=== PATIENT | male | born 1990 | race American Indian/Alaskan Native ===

== ENCOUNTER 2016-12-06 04:42 | Emergency (ER) | payer BC, OTHER ==
[2016-12-06 04:53] VITALS: BP 134/109
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
[2016-12-06 06:08] LABS: CHLORIDE,CL 104 mmol/L (101-111); SODIUM,NA 140 mmol/L (135-145)
== END 2016-12-06 06:40 ==
LOC: DL.ED 04:42
DX: F19.10 Other psychoactive substance abuse, uncomplicated (principal); F17.210 Nicotine dependence, cigarettes, uncomplicated; Z90.49 Acquired absence of other specified parts of digestive tract
CPT/HCPCS: 36415; 51702; 70450; 80053; 80305; 81001; 85025; 99285; G0480; 99282

== ENCOUNTER 2019-11-08 01:31 | Emergency (ER) | payer OTHER ==
[2019-11-08] MEDS ORDERED: Tetracaine HCl/PF 0.5% 4 ML Bottle EYELF ONE (01:44)
--- NOTE | 2019-11-08 01:48 | EDM.PDOC ---
ED HPI GENERAL MEDICAL PROBLEM - General Chief Complaint: ENT Problem Stated Complaint: BUG IN EAR Time Seen by Provider: 11/08/19 01:46 Source of Information: Reports: Patient History Limitations: Reports: No Limitations - History of Present Illness INITIAL COMMENTS - FREE TEXT/NARRATIVE: bug in left ear about hour ago. tried washing but still hear it. - Related Data Allergies Allergy/AdvReac Type Severity Reaction Status Date / Time No Known Allergies Allergy Verified 11/08/19 01:43 Home Meds: Home Meds . [No Known Home Meds] 12/06/16 [History] Past Medical History - Past Surgical History GI Surgical History: Reports: Cholecystectomy Social & Family History - Tobacco Use Smoking Status *Q: Current Every Day Smoker Years of Tobacco use: 0 Packs/Tins Daily: 0 - Caffeine Use Caffeine Use: Reports: Energy Drinks, Soda - Recreational Drug Use Recreational Drug Use: No ED ROS ENT - Review of Systems Review Of Systems: Comprehensive ROS is negative, except as noted in HPI. ED EXAM, ENT - Physical Exam Exam: See Below Exam Limited By: No Limitations General Appearance: Alert, WD/WN, Mild Distress, Other (discomfort) Ears: Other (left ear bug with visible leg and wing against TM, TM intact, mild local canal erytema without bleeding.) Mouth/Throat: Normal Inspection Head: Atraumatic Neck: Non-Tender, Full Range of Motion Respiratory/Chest: No Respiratory Distress Cardiovascular: Regular Rate, Rhythm GI/Abdominal: Soft, Non-Tender Neurological: Alert, Oriented, Normal Cognition, Normal Gait, No Motor/Sensory Deficits Psychiatric: Normal Affect, Normal Mood Skin: Warm, Dry, Normal Color Lymphatic: No Adenopathy Course - Vital Signs Last Recorded V/S: Last Vital Signs Temp 36.8 C 11/08/19 01:45 Pulse 123 H 11/08/19 01:45 Resp 16 11/08/19 01:45 BP 173/128 H 11/08/19 01:45 Pulse Ox 99 11/08/19 01:45 - Orders/Labs/Meds Meds: Medications Discontinued Medications Generic Name Dose Route Start Last Admin Trade Name Freq PRN Reason Stop Dose Admin Tetracaine HCl 1 ml 11/08/19 01:44 11/08/19 01:49 Tetracaine 0.5% Steri-Unit Mehreen EYELF 11/08/19 01:45 1 dose ASDIRECTED ONE Administration - Re-Assessments/Exams Free Text/Narrative Re-Assessment/Exam: 11/08/19 02:04 ear canal flushed mossy removed without complication. pt feeling much better now. Departure - Departure Time of Disposition: 02:05 Disposition: Home, Self-Care 01 Condition: Good Clinical Impression: Foreign body in ear Qualifiers: Encounter type: initial encounter Laterality: left Qualified Code(s): T16.2XXA - Foreign body in left ear, initial encounter - Discharge Information Forms: ED Department Discharge Additional Instructions: 1) recheck as needed Sepsis Event Note - Focused Exam Vital Signs: Vital Signs Temp Pulse Resp BP Pulse Ox 11/08/19 01:45 36.8 C 123 H 16 173/128 H 99 Date Exam was Performed: 11/08/19 Time Exam was Performed: 02:07
[2019-11-08 01:49] VITALS: BP 173/128; PULSE 123
== END 2019-11-08 02:12 | disposition home or self-care (01) ==
LOC: DL.ED 01:31
DX: T16.2XXA Foreign body in left ear, initial encounter (principal); F17.200 Nicotine dependence, unspecified, uncomplicated
CPT/HCPCS: 99282